=== PATIENT | male | born 2005 ===

== ENCOUNTER 2025-01-30 17:45 | Emergency (ER) | payer OTHER ==
[~2025-01-30] VITALS: Ht 182.9 cm; Wt 59.0 kg
[2025-01-30] MEDS ORDERED: Dexamethasone Sod Phos 10 MG/ML 1ML VIAL IM ONE (19:10)
[2025-01-30] MEDS ORDERED: PRED20 PO (19:13)
== END 2025-01-30 19:35 | disposition home or self-care (01) ==
LOC: ER 17:45
DX: L25.9 Unspecified contact dermatitis, unspecified cause (principal)
CPT/HCPCS: 96372; 99283-25; J1100